=== PATIENT | male | born 1995 | race Two or more races ===

== ENCOUNTER 2025-05-27 08:29 | Emergency (ER) | payer MEDICAID, SELFPAY ==
[2025-05-27 08:31] VITALS: BP 156/92; PULSE 120; RESP 18; TEMP 36.9; O2SAT 96
[2025-05-27 08:32] VITALS: BMI 34.3
[2025-05-27 08:33] VITALS: BMI 37.8
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
[2025-05-27 08:57] VITALS: PULSE 110; RESP 18; O2SAT 97
== END 2025-05-27 09:25 ==
PROVIDERS: Emergency Provider Emergency Medicine
DX: Z02.89 Encounter for other administrative examinations (principal); Z04.1 Encounter for examination and observation following transport accident; F10.129 Alcohol abuse with intoxication, unspecified
CPT/HCPCS: 99283